=== PATIENT | male | born 1955 | race Hispanic/Latino ===

== ENCOUNTER 2017-03-04 03:33 | Emergency (ER) | payer MEDICAID ==
[2017-03-04 03:50] VITALS: BP 134/88; PULSE 96; RESP 17; TEMP 98.9; O2SAT 98
--- NOTE | 2017-03-04 04:55 | ED PDOC ---
Lower Extremity Pain/Injury Time Seen by Provider: 03/04/17 03:52 Chief Complaint (Nursing): Lower Extremity Problem/Injury Chief Complaint (Provider): Lower Extremity Problem History Per: Patient History/Exam Limitations: no limitations Onset/Duration Of Symptoms: Hrs (x1) Current Symptoms Are (Timing): Still Present Additional Complaint(s): 61 year old male presents to ED with complaints of atraumatic right foot pain x1 hour and has a past medical history of Hypertension, stroke (residual right sided weakness), and hypercholesterolemia. Patient states he is noncompliant with his medication because he ran out. Notes onset of foot pain while sitting in [employer] and confirms that he has not removed his shoes for 1 week. (-) numbness or weakness to the area. PCP: None Past Medical History Reviewed: Historical Data, Nursing Documentation, Vital Signs Vital Signs: Last Vital Signs Temp 98.9 F 03/04/17 03:40 Pulse 96 H 03/04/17 03:40 Resp 17 03/04/17 03:40 BP 134/88 03/04/17 03:40 Pulse Ox 98 03/04/17 03:40 - Medical History PMH: CVA, HTN, Hypercholesterolemia - Surgical History Surgical History: No Surg Hx - Family History Family History: States: No Known Family Hx - Living Arrangements Living Arrangements: Other (Non-domiciled) - Allergies Allergies/Adverse Reactions: Allergies Allergy/AdvReac Type Severity Reaction Status Date / Time No Known Allergies Allergy Verified 03/04/17 03:50 Wells Criteria for PE - Wells Criteria for Pulmonary Embolism P.E is #1 Diagnosis, or Equally Likely: No Heart Rate >100: No Hemoptysis: No Malignancy w/treatment within 6 months, or palliative: No Total Score: 0 Review of Systems ROS Statement: Except As Marked, All Systems Reviewed And Found Negative Musculoskeletal: Positive for: Foot Pain (right foot pain) Neurological: Negative for: Weakness, Numbness Physical Exam - Reviewed Nursing Documentation Reviewed: Yes Vital Signs Reviewed: Yes - Physical Exam Appears: Positive for: Non-toxic, No Acute Distress (Unkempt) Head Exam: Positive for: NORMAL INSPECTION Skin: Positive for: Normal Color, Warm, Dry Eye Exam: Positive for: Normal appearance Cardiovascular/Chest: Positive for: Regular Rate, Rhythm Respiratory: Positive for: Normal Breath Sounds. Negative for: Respiratory Distress Gastrointestinal/Abdominal: Positive for: Soft. Negative for: Tenderness Back: Positive for: Normal Inspection Extremity: Positive for: Normal ROM. Negative for: Tenderness, Deformity, Swelling, Other ((-) wounds, erythema, swelling, tenderness, or lesions to RLE) Neurologic/Psych: Positive for: Alert, Oriented. Negative for: Motor/Sensory Deficits - ECG O2 Sat by Pulse Oximetry: 98 (RA) Pulse Ox Interpretation: Normal Medical Decision Making Medical Decision Makin Initial impression: foot pain, normal exam of foot Initial plan: * Ibuprofen 600mg PO * Re-eval Patient notes that he feels better after removing shoes. Scribe Attestation: Documented by Tricia Alford acting as a scribe for Belén Shay MD. Scribe Attestation: All medical record entries made by the Scribe were at my direction and personally dictated by me. I have reviewed the chart and agree that the record accurately reflects my personal performance of the history, physical exam, medical decision making, and the department course for this patient. I have also personally directed, reviewed, and agree with the discharge instructions and disposition. Disposition - Clinical Impression Clinical Impression: Foot pain, right - Patient ED Disposition Is Patient to be Admitted: No Doctor Will See Patient In The: Office Counseled Patient/Family Regarding: Studies Performed, Diagnosis, Need For Followup - Disposition Referrals: Podiatry Clinic [Outside] Disposition: Routine/Home Disposition Time: 06:12 Condition: GOOD Instructions: Arthralgia (ED)
== END 2017-03-04 07:00 | disposition home or self-care (01) ==
LOC: H.ER 03:33
DX: M79.671 Pain in right foot (principal); E78.00 Pure hypercholesterolemia, unspecified; I10 Essential (primary) hypertension; Z86.73 Personal history of transient ischemic attack (TIA), and cerebral infarction without residual deficits

== ENCOUNTER 2017-05-19 00:19 | Emergency (ER) | payer OTHER, MEDICAID ==
[2017-05-19 00:38] VITALS: RESP 16; TEMP 98.1; O2SAT 96
[2017-05-19 02:03] LABS: HEMOGLOBIN 14.1 g/dL (12.0-18.0); MEAN CORPUSCULAR HEMOGLOBIN 30.1 pg (27.0-31.0); MEAN CORPUSCULAR HGB CONC 33.5 g/dL (33.0-37.0); RBC 4.67 Mil/uL (4.40-5.90); RED CELL DISTRIBUTION WIDTH 14.2 % (11.5-14.5); WHITE BLOOD COUNT 9.5 K/uL (4.8-10.8)
[2017-05-19 02:14] LABS: ALB/GLOB RATIO 1.3 (1.0-2.1); ALBUMIN 3.6 g/dL (3.5-5.0); ALT/SGPT 60 U/L (21-72); AST/SGOT 22 U/L (17-59); BLOOD UREA NITROGEN 17 mg/dl (9-20); CALCIUM 9.1 mg/dL (8.4-10.2); GFR AFRICAN-AMERICAN > 60; GFR NON-AFRICAN AMERICAN > 60
[2017-05-19 03:37] VITALS: BP 138/77; PULSE 81
--- NOTE | 2017-05-19 04:00 | ED PDOC ---
HPI: Headache Time Seen by Provider: 05/19/17 01:01 Chief Complaint (Nursing): Headache Chief Complaint (Provider): Facial pain x 2 hours History Per: Patient History/Exam Limitations: no limitations Onset/Duration Of Symptoms: Days Current Symptoms Are (Timing): Still Present Severity: Mild Preceeding Symptoms: None Associated Symptoms: denies: Photophobia, Blurred Vision, Nausea, Vomiting, Extremity Weakness Additional Complaint(s): Pt states he thinks his BP his high and did not take his BP medication today ( clonidine). Pt reports facial pain, denies headache. Past Medical History Reviewed: Historical Data, Nursing Documentation, Vital Signs Vital Signs: Last Vital Signs Temp 98.1 F 05/19/17 00:35 Pulse 81 05/19/17 03:37 Resp 16 05/19/17 00:35 BP 138/77 05/19/17 03:37 Pulse Ox 96 05/19/17 00:35 - Medical History PMH: Back Problems, Benign Prostatic Hyperplasia, COPD, CVA, Depression, HTN, Hypercholesterolemia - Surgical History Surgical History: No Surg Hx - Family History Family History: States: No Known Family Hx - Living Arrangements Living Arrangements: With Family - Social History Current smoker - smoking cessation education provided: No Alcohol: None Drugs: Denies - Allergies Allergies/Adverse Reactions: Allergies Allergy/AdvReac Type Severity Reaction Status Date / Time No Known Allergies Allergy Verified 05/19/17 00:35 Review of Systems ROS Statement: Except As Marked, All Systems Reviewed And Found Negative Constitutional: Negative for: Fever, Chills ENT: Positive for: Other Neurological: Negative for: Weakness Physical Exam - Reviewed Nursing Documentation Reviewed: Yes Vital Signs Reviewed: Yes - Physical Exam Appears: Positive for: Well, Non-toxic, No Acute Distress Head Exam: Positive for: ATRAUMATIC, NORMAL INSPECTION, NORMOCEPHALIC Skin: Positive for: Normal Color, Warm, DRY Eye Exam: Positive for: Normal appearance ENT: Positive for: Normal ENT Inspection Neck: Positive for: Normal, Painless ROM Cardiovascular/Chest: Positive for: Regular Rate, Rhythm Respiratory: Positive for: CNT, Normal Breath Sounds Back: Positive for: Normal Inspection Extremity: Positive for: Normal ROM Neurologic/Psych: Positive for: Alert, Oriented - Laboratory Results Result Diagrams: 05/19/17 01:59 05/19/17 01:59 - ECG O2 Sat by Pulse Oximetry: 96 Medical Decision Making Medical Decision Making: Labs normal. Improvement of HTN. Disposition - Clinical Impression Clinical Impression: Facial pain, HTN (hypertension) - Patient ED Disposition Is Patient to be Admitted: No - Disposition Disposition: Routine/Home Disposition Time: 04:00 Condition: GOOD Instructions: Chronic Hypertension (ED)
== END 2017-05-19 04:45 | disposition home or self-care (01) ==
LOC: H.ER 00:19
DX: R51 Headache (principal); I10 Essential (primary) hypertension; Z86.59 Personal history of other mental and behavioral disorders; J44.9 Chronic obstructive pulmonary disease, unspecified; N40.0 Benign prostatic hyperplasia without lower urinary tract symptoms; E78.00 Pure hypercholesterolemia, unspecified

== ENCOUNTER 2017-05-23 22:03 | Emergency (ER) | payer OTHER, MEDICAID ==
[2017-05-23 22:10] VITALS: PULSE 91; RESP 16; TEMP 97.2; O2SAT 96
--- NOTE | 2017-05-23 22:48 | ED PDOC ---
HPI: Hypertension/Hypotension Time Seen by Provider: 05/23/17 22:19 Chief Complaint (Nursing): High Blood Pressure Chief Complaint (Provider): High Blood Pressure and facial pain History Per: Patient History/Exam Limitations: no limitations Onset/Duration Of Symptoms: Hrs Current Symptoms Are (Timing): Still Present Associated Symptoms: denies: Chest Pain, Dyspnea, Dizziness, Blurred Vision, Focal Weakness, Headache Exacerbating Factor(s): Pos: None Additional History Per: Patient Additional Complaint(s): This is 61 y/o homeless male with PMH of HTN, HLD, COPD, CVAx2, depression and BPH comes to the ED c/o high blood pressure and facial pain which he started feeling few hours ago. Patient is also c/o right arm pain which comes whenever his blood pressure high. Denies any blurred vision, headache, dizziness, vomiting, weakness, numbness or tingling. Admits dyspnea on exertion. Denies any chest pain, abdominal pain or neck pain. Past Medical History Vital Signs: Last Vital Signs Temp 97.2 F L 05/23/17 22:08 Pulse 91 H 05/23/17 22:08 Resp 16 05/23/17 22:08 BP 173/92 H 05/23/17 22:08 Pulse Ox 96 05/23/17 22:08 - Medical History PMH: Back Problems, Benign Prostatic Hyperplasia, COPD, CVA, Depression, HTN, Hypercholesterolemia - Surgical History Surgical History: No Surg Hx - Family History Family History: States: Diabetes, Hypertension Other Family History: cancer - Living Arrangements Living Arrangements: Other (Homeless) - Social History Current smoker - smoking cessation education provided: Yes Alcohol: None Drugs: Denies - Allergies Allergies/Adverse Reactions: Allergies Allergy/AdvReac Type Severity Reaction Status Date / Time No Known Allergies Allergy Verified 05/19/17 00:35 Review of Systems Constitutional: Negative for: Fever, Weakness, Weight loss Eyes: Negative for: Pain, Vision Change, Conjunctivae Inflammation ENT: Negative for: Ear Pain, Nose Pain Cardiovascular: Negative for: Chest Pain, Palpitations, Orthopnea Respiratory: Positive for: SOB with Exertion. Negative for: Cough, Shortness of Breath Gastrointestinal: Negative for: Nausea, Vomiting, Abdominal Pain, Diarrhea Musculoskeletal: Positive for: Shoulder Pain (right ), Other (facial pressure ) . Negative for: Neck Pain Neurological: Negative for: Weakness, Numbness, Incoordination, Change in Speech , Confusion, Altered Mental Status, Headache, Dizziness Physical Exam - Reviewed Nursing Documentation Reviewed: Yes Vital Signs Reviewed: Yes - Physical Exam Appears: Positive for: No Acute Distress Head Exam: Positive for: NORMOCEPHALIC Skin: Positive for: Normal Color, Warm Eye Exam: Positive for: Normal appearance, EOMI, PERRL ENT: Positive for: Normal ENT Inspection Neck: Positive for: Normal Cardiovascular/Chest: Positive for: Regular Rate, Rhythm. Negative for: Edema Respiratory: Positive for: Normal Breath Sounds Gastrointestinal/Abdominal: Positive for: Normal Exam Extremity: Negative for: Tenderness, Pedal Edema - ECG O2 Sat by Pulse Oximetry: 96 - Progress ED Course And Treament: 61 y/o male with high blood pressure and facial pain - Monitor VS - EKG - CBC, CMP - Clonidine 0.1 mg - Re-evaluate Case discussed with Dr. Barraza Disposition - Clinical Impression Clinical Impression: History of hypertension - Disposition Referrals: [facility] [Outside] Disposition Time: 23:50 Condition: STABLE Instructions: Hypertension (ED) Forms: [employer] (H[place]er)
[2017-05-23 23:23] VITALS: BP 121/64
--- NOTE | 2017-05-24 11:58 | CARD ---
APPROVED REPORT EKG Measurement Heart [id number] <Conclusion> Sinus rhythm with occasional premature ventricular complexes Nonspecific T wave abnormality Abnormal ECG
== END 2017-05-24 01:20 | disposition home or self-care (01) ==
LOC: H.ER 22:03
DX: I10 Essential (primary) hypertension (principal); E78.00 Pure hypercholesterolemia, unspecified; F17.200 Nicotine dependence, unspecified, uncomplicated; F32.9 Major depressive disorder, single episode, unspecified; N40.0 Benign prostatic hyperplasia without lower urinary tract symptoms; Z86.73 Personal history of transient ischemic attack (TIA), and cerebral infarction without residual deficits

== ENCOUNTER 2017-05-27 21:46 | Inpatient (IN) | payer MEDICAID, OTHER ==
--- NOTE | 2017-05-27 22:50 | ED PDOC ---
HPI: Hypertension/Hypotension Time Seen by Provider: 05/27/17 22:38 Chief Complaint (Nursing): High Blood Pressure Chief Complaint (Provider): neck pain and high bp History Per: Patient History/Exam Limitations: no limitations Onset/Duration Of Symptoms: Days (today) Current Symptoms Are (Timing): Still Present Additional History Per: Patient Additional Complaint(s): Pt. with high bp. Not taking any meds he is suppose to. Neck pressure and R arm pain. No numbness, tingles, dizziness, abd pain, chest pain, dyspnea. Homeless. Past Medical History Reviewed: Nursing Documentation, Vital Signs Vital Signs: Last Vital Signs Temp 98.4 F 05/27/17 22:06 Pulse 78 05/27/17 22:06 Resp 16 05/27/17 22:06 BP 187/95 H 05/27/17 22:06 Pulse Ox 97 05/27/17 22:06 - Medical History PMH: Back Problems, Benign Prostatic Hyperplasia, COPD, CVA, Depression, HTN, Hypercholesterolemia - Family History Family History: States: Diabetes, Hypertension - Social History Current smoker - smoking cessation education provided: No Alcohol: None Drugs: Denies - Allergies Allergies/Adverse Reactions: Allergies Allergy/AdvReac Type Severity Reaction Status Date / Time No Known Allergies Allergy Verified 05/27/17 22:06 Review of Systems ROS Statement: Except As Marked, All Systems Reviewed And Found Negative Musculoskeletal: Positive for: Neck Pain, Arm Pain Physical Exam - Reviewed Nursing Documentation Reviewed: Yes Vital Signs Reviewed: Yes - Physical Exam Appears: Positive for: Well, Non-toxic, No Acute Distress Head Exam: Positive for: ATRAUMATIC, NORMAL INSPECTION, NORMOCEPHALIC Skin: Positive for: Normal Color, Warm, DRY Eye Exam: Positive for: EOMI, Normal appearance, PERRL ENT: Positive for: Normal ENT Inspection Neck: Positive for: Normal, Painless ROM Cardiovascular/Chest: Positive for: Regular Rate, Rhythm Respiratory: Positive for: CNT, Normal Breath Sounds Gastrointestinal/Abdominal: Positive for: Normal Exam, Bowel Sounds, Soft Back: Positive for: Normal Inspection Extremity: Positive for: Normal ROM Neurologic/Psych: Positive for: Alert, health outreach worker II-XII, Oriented. Negative for: Motor/Sensory Deficits - ECG ECG: Positive for: Interpreted By Me, Viewed By Me ECG Rhythm: Positive for: Normal QRS, Normal ST Segment, Sinus Rhythm O2 Sat by Pulse Oximetry: 97 Pulse Ox Interpretation: Normal - Progress ED Course And Treament: 2355: Stable. Dr. Strickland to take over care. Disposition - Clinical Impression Clinical Impression: HTN (hypertension) - Patient ED Disposition Is Patient to be Admitted: Transfer of Care - Disposition Disposition Time: 00:16 Condition: STABLE Patient Signed Over To: Wellington Strickland
--- NOTE | 2017-05-28 00:14 | CT ---
EXAM: CT Head Without Intravenous Contrast CLINICAL HISTORY: 61 years old, male; Pain and signs and symptoms; Other: High blood pressure; Headache; Headache not specified; Patient HX: CVA TECHNIQUE: Axial computed tomography images of the head/brain without intravenous contrast. All CT scans at this facility use one or more dose reduction techniques, viz.: automated exposure control; ma/kV adjustment per patient size (including targeted exams where dose is matched to indication; i.e. head); or iterative reconstruction technique. Coronal and sagittal reformatted images were created and reviewed. COMPARISON: No relevant prior studies available. FINDINGS: Brain: There is mild diffuse cerebral atrophy present, consistent with this patient's age. There is a focus of decreased density and volume loss in the right frontal lobe, consistent with encephalomalacia from a remote infarct or other insult. There is a focus of decreased density and volume loss in the left frontal lobe, consistent with encephalomalacia from a remote infarct or other insult. There is moderate diffuse heterogeneity of the white matter attenuation, consistent with chronic white matter ischemic changes. Chronic right thalamic lacunar infarct. Chronic left lacunar infarct in the garcia radiata. There are chronic infarcts in the edyta No hemorrhage. Ventricles: The ventricular system demonstrates moderate diffuse compensatory enlargement. Ex vacuo dilatation of the frontal horns bilaterally. Bones/joints: Unremarkable. No acute fracture. Soft tissues: Unremarkable. Sinuses: Clinically opacification of the right frontal sinus.There is diffuse mucoperiosteal thickening in the ethmoid and maxillary sinuses, consistent with chronic sinusitis. Mastoid air cells: Unremarkable as visualized. No mastoid effusion. IMPRESSION: Age-related atrophy and chronic white matter ischemic changes, with no evidence of an acute intracranial abnormality. Bifrontal lobe encephalomalacia consistent with chronic infarcts. Chronic infarcts in the edyta. Chronic right thalamic and left garcia radiata lacunar infarcts. Chronic sinus disease.
[2017-05-28 00:22] LABS: BASO # 0.1 K/uL (0.0-0.2); BASO % 0.7 % (0.0-2.0); EOS # 0.5 K/uL (0.0-0.7); EOS % 5.6 % (0.0-4.0); HEMOGLOBIN 14.2 g/dL (12.0-18.0); LYMPH # 1.9 K/uL (1.0-4.3); LYMPH % 19.8 % (20.0-40.0); MEAN CELL VOLUME 90.5 fl (80.0-94.0); MEAN CORPUSCULAR HEMOGLOBIN 29.7 pg (27.0-31.0); MEAN CORPUSCULAR HGB CONC 32.9 g/dL (33.0-37.0); MONO # 0.7 K/uL (0.0-0.8); MONO % 7.5 % (0.0-10.0); NEUT # 6.4 K/uL (1.8-7.0); NEUT % 66.4 % (50.0-75.0); NRBC % 0.1 % (0.0-0.0); RBC 4.76 Mil/uL (4.40-5.90); RED CELL DISTRIBUTION WIDTH 14.8 % (11.5-14.5); WHITE BLOOD COUNT 9.6 K/uL (4.8-10.8)
[2017-05-28 00:41] LABS: ALB/GLOB RATIO 1.3 (1.0-2.1); ALBUMIN 3.9 g/dL (3.5-5.0); ALT/SGPT 87 U/L (21-72); AST/SGOT 29 U/L (17-59); BLOOD UREA NITROGEN 13 mg/dl (9-20); CALCIUM 9.4 mg/dL (8.4-10.2); GFR AFRICAN-AMERICAN > 60; GFR NON-AFRICAN AMERICAN > 60
[2017-05-28 00:43] LABS: PARTIAL THROMBOPLASTIN TIME 28.8 Seconds (25.6-37.1); PROTHROMBIN TIME 11.5 Seconds (9.8-13.1)
--- NOTE | 2017-05-28 01:08 | ED PDOC ---
- Laboratory Results Result Diagrams: 05/27/17 23:10 05/27/17 23:10 - ECG O2 Sat by Pulse Oximetry: 97 Medical Decision Making Medical Decision Making: Time: 00:00 --Patient signed over to me by Dr. Dias pending labs. 2:00 BP 140s/80s at this time. Pt. states he's SOB and having arm pain. No wheezing noted. Patient's 3rd visit to ED for uncontrollable BP. Will admit for r/o ACS given age, smoking status, and uncontrolled BP, pt. will require OBS for 24 hour of cardiac monitoring. Pt. has no PMD (states PMD is in [place] ). Scribe Attestation: Documented by Rodri Eisenberg, acting as a scribe for Wellington Strickland MD. Provider Scribe Attestation: All medical record entries made by the Scribe were at my direction and personally dictated by me. I have reviewed the chart and agree that the record accurately reflects my personal performance of the history, physical exam, medical decision making, and the department course for this patient. I have also personally directed, reviewed, and agree with the discharge instructions and disposition. Disposition - Clinical Impression Clinical Impression: HTN (hypertension), Shortness of breath - POA Present On Arrival: None - Disposition Disposition: Hospitalized as Observation Patient Disposition Time: 02:00 Condition: STABLE
--- NOTE | 2017-05-28 08:23 | CARD ---
APPROVED REPORT EKG Measurement Heart [id number] <Conclusion> Normal sinus rhythm Normal ECG
--- NOTE | 2017-05-28 09:36 | RAD ---
HISTORY: neck pain COMPARISON: No prior. FINDINGS: LUNGS: No active pulmonary disease. PLEURA: No significant pleural effusion identified, no pneumothorax apparent. CARDIOVASCULAR: Atherosclerotic aortic calcifications. Cardiomediastinal silhouette appears prominent; however, this cannot be accurately assessed on an AP projection. OSSEOUS STRUCTURES: Degenerative changes. VISUALIZED UPPER ABDOMEN: Normal. OTHER FINDINGS: None. IMPRESSION: No active disease.
--- NOTE | 2017-05-28 12:38 | CP.PCM.HP ---
History of Present Illness - History of Present Illness History of Present Illness: 61 yr old M presented to ED with complaint of neck and right arm pain x 2 days. PMHx includes uncontrolled hypertension, morbid obesity, chronic back pain, COPD , CVA without residual weakness or deficit and depression. Neck and right arm pain is 3/10, dull, no exacerbated by anything, has no tried anything to alleviate his pain. Denies chest pain, SOB, weakness, dizziness, sweating, nausea, vomiting, or syncope. Patient reports he is homeless and sleeps on the street as he cannot stand to be in the halfway, does not have a PMD, does not take BP medication or follow up with any physician. He has not taken any medication to alleviate the neck and arm pain. Denies cardiac catheterization in the past. PMD: none PMHx: uncontrolled hypertension, morbid obesity, chronic back pain, COPD, CVA and depression SurgHx: left knee arthroscopy FMHx: mother at 60yrs old from unknown primary pelvic cancer, father is 88yrs old and healthy, siblings are healthy SocHx: current smoker-47 pack yrs, denies Etoh or drugs, does not have contact with his family Medications: none Allergies: NKDA Present on Admission - Present on Admission Any Indicators Present on Admission: No History of DVT/PE: No History of Uncontrolled Diabetes: No Urinary Catheter: No Decubitus Ulcer Present: No History Surgical Site Infection Following: None Review of Systems - Review of Systems All systems: reviewed and no additional remarkable complaints except (for what is mentioned in the HPI) - Constitutional Constitutional: absent: Headache, Weakness - EENT Eyes: absent: Blurred Vision, Change in Vision Ears: absent: Dizziness Nose/Mouth/Throat: absent: Nasal Congestion, Nasal Discharge - Cardiovascular Cardiovascular: absent: Chest Pain, Dyspnea - Respiratory Respiratory: absent: Hemoptysis - Gastrointestinal Gastrointestinal: absent: Nausea, Vomiting - Genitourinary Genitourinary: absent: Dysuria, Hematuria - Musculoskeletal Musculoskeletal: Back Pain (chronic), Neck Pain (and right arm pain) - Integumentary Integumentary: absent: Swelling - Neurological Neurological: absent: Dizziness - Psychiatric Psychiatric: absent: Suicidal Ideation - Endocrine Endocrine: absent: Polyuria - Hematologic/Lymphatic Hematologic: absent: Easy Bleeding, Easy Bruising Past Patient History - Past Social History Smoking Status: Unknown If Ever Smoked - CARDIAC Hx Hypercholesterolemia: Yes Hx Hypertension: Yes - PULMONARY Hx Chronic Obstructive Pulmonary Disease (COPD): Yes - NEUROLOGICAL HX Cerebrovascular Accident: Yes - PSYCHIATRIC Hx Depression: Yes Hx Substance Use: No - SURGICAL HISTORY Other/Comment: L KNEE - ANESTHESIA Hx Anesthesia: Yes Meds Allergies/Adverse Reactions: Allergies Allergy/AdvReac Type Severity Reaction Status Date / Time No Known Allergies Allergy Verified 05/27/17 22:06 Physical Exam - Constitutional Appears: Unkempt (severely poor hygiene) - Head Exam Head Exam: ATRAUMATIC, NORMOCEPHALIC Additional comments: seborrheic dermatitis of scalp - Eye Exam Eye Exam: EOMI, PERRL - ENT Exam ENT Exam: Mucous Membranes Moist - Neck Exam Neck exam: Positive for: Full Rom. Negative for: Lymphadenopathy - Respiratory Exam Respiratory Exam: Clear to Auscultation Bilateral, NORMAL BREATHING PATTERN - Cardiovascular Exam Cardiovascular Exam: REGULAR RHYTHM, +S1, +S2 - GI/Abdominal Exam GI & Abdominal Exam: Normal Bowel Sounds, Soft (obese) - Extremities Exam Extremities exam: Positive for: full ROM, pedal edema (and chronic venous stasis dermatits of bilateral distal LE) - Neurological Exam Neurological exam: Alert, CN II-XII Intact, Oriented x3 - Psychiatric Exam Psychiatric exam: Normal Affect, Normal Mood - Skin Skin Exam: Dry, Normal Color, Warm Results - Vital Signs Recent Vital Signs: Last Vital Signs Temp 98.4 F 05/27/17 22:06 Pulse 82 05/28/17 06:50 Resp 17 05/28/17 06:50 BP 139/78 05/28/17 06:50 Pulse Ox 97 05/28/17 06:50 - Labs Result Diagrams: 05/27/17 23:10 05/27/17 23:10 Labs: Laboratory Results - last 24 hr 05/27/17 05/27/17 05/27/17 23:10 23:10 23:10 WBC 9.6 RBC 4.76 Hgb 14.2 Hct 43.1 MCV 90.5 MCH 29.7 MCHC 32.9 L RDW 14.8 H Plt Count 177 MPV 10.0 Neut % (Auto) 66.4 Lymph % (Auto) 19.8 L [place] % (Auto) 7.5 Eos % (Auto) 5.6 H Baso % (Auto) 0.7 Neut # 6.4 Lymph # 1.9 [place] # 0.7 Eos # 0.5 Baso # 0.1 PT 11.5 INR 1.0 APTT 28.8 Sodium 145 Potassium 3.5 L Chloride 108 H Carbon Dioxide 26 Anion Gap 15 BUN 13 Creatinine 0.7 L Est GFR ( Amer) > 60 Est GFR (Non-Af Amer) > 60 Random Glucose 126 H Calcium 9.4 Total Bilirubin 0.5 AST 29 ALT 87 H D Alkaline Phosphatase 60 Troponin I < 0.0120 Total Protein 7.0 Albumin 3.9 Globulin 3.1 Albumin/Globulin Ratio 1.3 05/28/17 07:44 WBC RBC Hgb Hct MCV MCH MCHC RDW Plt Count MPV Neut % (Auto) Lymph % (Auto) [place] % (Auto) Eos % (Auto) Baso % (Auto) Neut # Lymph # [place] # Eos # Baso # PT INR APTT Sodium Potassium Chloride Carbon Dioxide Anion Gap BUN Creatinine Est GFR ( Amer) Est GFR (Non-Af Amer) Random Glucose Calcium Total Bilirubin AST ALT Alkaline Phosphatase Troponin I < 0.0120 Total Protein Albumin Globulin Albumin/Globulin Ratio Assessment & Plan - Assessment and Plan (Free Text) Assessment: 61 yr old M admitted for uncontrolled hypertension with neck and arm pain, rule out ACS. 1. Uncontrolled hypertension -chronic, uncontrolled -patient not adherent to medication or follow up with any physician -admit to telemetry, cardiac monitoring -monitor BP -will refer to PMD as outpatient 2. Neck and right arm pain -acute, improved s/p tylenol, likely secondary to muscle spasm vs less likely ACS -EKG: NSR, troponin negative x 2, CT head: evidence of chronic infarcts with no acute intracranial abnormalities -CXR: no active disease -f/u 3rd serial troponin 3. DVT prophylaxis -Lovenox 40mg SC QD - Date & Time Date: 05/28/17 Time: 10:00
[2017-05-28] MEDS ORDERED: Potassium Chloride 20 mEq ER Tab PO ONE ×2 (13:22→14:26)
--- NOTE | 2017-05-28 16:48 | CP.PCM.DIS ---
Provider - Provider Date of Admission: 05/28/17 02:41 Attending physician: Alex Swain MD Time Spent in preparation of Discharge (in minutes): 30 Diagnosis - Discharge Diagnosis (1) Uncontrolled hypertension Status: Chronic Priority: Low (2) Neck pain, acute Status: Acute Priority: Low (3) Arm pain Status: Acute Priority: Low Hospital Course - Lab Results Lab Results: Most Recent Lab Values WBC 9.6 K/uL (4.8-10.8) 05/27/17 23:10 RBC 4.76 Mil/uL (4.40-5.90) 05/27/17 23:10 Hgb 14.2 g/dL (12.0-18.0) 05/27/17 23:10 Hct 43.1 % (35.0-51.0) 05/27/17 23:10 MCV 90.5 fl (80.0-94.0) 05/27/17 23:10 MCH 29.7 pg (27.0-31.0) 05/27/17 23:10 MCHC 32.9 g/dL (33.0-37.0) L 05/27/17 23:10 RDW 14.8 % (11.5-14.5) H 05/27/17 23:10 Plt Count 177 K/uL (130-400) 05/27/17 23:10 MPV 10.0 fl (7.2-11.7) 05/27/17 23:10 Neut % (Auto) 66.4 % (50.0-75.0) 05/27/17 23:10 Lymph % (Auto) 19.8 % (20.0-40.0) L 05/27/17 23:10 Quay % (Auto) 7.5 % (0.0-10.0) 05/27/17 23:10 Eos % (Auto) 5.6 % (0.0-4.0) H 05/27/17 23:10 Baso % (Auto) 0.7 % (0.0-2.0) 05/27/17 23:10 Neut # 6.4 K/uL (1.8-7.0) 05/27/17 23:10 Lymph # 1.9 K/uL (1.0-4.3) 05/27/17 23:10 Quay # 0.7 K/uL (0.0-0.8) 05/27/17 23:10 Eos # 0.5 K/uL (0.0-0.7) 05/27/17 23:10 Baso # 0.1 K/uL (0.0-0.2) 05/27/17 23:10 PT 11.5 Seconds (9.8-13.1) 05/27/17 23:10 INR 1.0 (0.9-1.2) 05/27/17 23:10 APTT 28.8 Seconds (25.6-37.1) 05/27/17 23:10 Sodium 145 mmol/l (132-148) 05/27/17 23:10 Potassium 3.5 MMOL/L (3.6-5.0) L 05/27/17 23:10 Chloride 108 mmol/L (98-107) H 05/27/17 23:10 Carbon Dioxide 26 mmol/L (22-30) 05/27/17 23:10 Anion Gap 15 (10-20) 05/27/17 23:10 BUN 13 mg/dl (9-20) 05/27/17 23:10 Creatinine 0.7 mg/dl (0.8-1.5) L 05/27/17 23:10 Est GFR ( Amer) > 60 05/27/17 23:10 Est GFR (Non-Af Amer) > 60 05/27/17 23:10 Random Glucose 126 mg/dL (75-110) H 05/27/17 23:10 Calcium 9.4 mg/dL (8.4-10.2) 05/27/17 23:10 Total Bilirubin 0.5 mg/dl (0.2-1.3) 05/27/17 23:10 AST 29 U/L (17-59) 05/27/17 23:10 ALT 87 U/L (21-72) H D 05/27/17 23:10 Alkaline Phosphatase 60 U/L (38-126) 05/27/17 23:10 Troponin I < 0.0120 ng/mL (0.00-0.120) 05/28/17 15:01 Total Protein 7.0 G/DL (6.3-8.2) 05/27/17 23:10 Albumin 3.9 g/dL (3.5-5.0) 05/27/17 23:10 Globulin 3.1 gm/dL (2.2-3.9) 05/27/17 23:10 Albumin/Globulin Ratio 1.3 (1.0-2.1) 05/27/17 23:10 - Hospital Course Hospital Course: 61 yr old M admitted for uncontrolled hypertension with neck and arm pain. ACS ruled out s/p normal EKG, troponin negative x 3, CT head negative, CXR no active disease. Patient is medically stable for discharge with instructions to take BP meds as prescribed and follow up with Dr. Swain in 1 week, eat low salt heart healthy diet. - Date & Time of H&P Date of H&P: 05/28/17 Time of H&P: 12:37 Discharge Exam - Head Exam Head Exam: ATRAUMATIC, NORMOCEPHALIC - Eye Exam Eye Exam: EOMI - ENT Exam ENT Exam: Mucous Membranes Moist - Neck Exam Neck exam: Full Rom - Respiratory Exam Respiratory Exam: NORMAL BREATHING PATTERN - Cardiovascular Exam Cardiovascular Exam: REGULAR RHYTHM, +S1, +S2 - GI/Abdominal Exam GI & Abdominal Exam: Normal Bowel Sounds, Soft (obese) - Extremities Exam Extremities exam: full ROM - Neurological Exam Neurological exam: Alert, CN II-XII Intact, Oriented x3 - Psychiatric Exam Psychiatric exam: Normal Affect, Normal Mood - Skin Skin Exam: Dry, Warm Discharge Plan - Discharge Medications Prescriptions: Albuterol HFA [Ventolin HFA 90 mcg/actuation (8 g)] 90 mcg INH Q4 PRN #1 inhaler PRN Reason: Shortness Of Breath amLODIPine [Norvasc] 10 mg PO DAILY #30 tab Atorvastatin [Lipitor] 40 mg PO DAILY #30 tab Lisinopril/Hydrochlorothiazide [Lisinopril-Hctz 20-25 mg Tab] 1 tab PO DAILY # 30 tablet - Follow Up Plan Condition: STABLE Disposition: HOME/ ROUTINE Instructions: Heart Healthy Diet (DC), Low Sodium Diet (DC), Chronic Hypertension (DC) Additional Instructions: -Follow up with Dr. Swain within 1 week -Take medications as prescribed -consume low salt, heart healthy diet-printed information given Referrals: Alex Swain MD [Staff Provider] - Clinical Quality Measures - Date & Time of Discharge Summary Date of Discharge Summary: 05/28/17 Time of Discharge Summary: 16:49
[2017-05-28 18:13] VITALS: BP 134/78; PULSE 74; RESP 20; TEMP 98; O2SAT 98
[2017-05-29] MEDS ORDERED: Enoxaparin 40 mg Syringe SC SCH (09:00)
== END 2017-05-28 18:12 | disposition home or self-care (01) | DRG 134 ==
LOC: H.ER 21:46 → H.ERHOLD 05-28 02:41
PROVIDERS: ADMIT Family Medicine; ATTEND Family Medicine
DX: I10 Essential (primary) hypertension (principal); E66.01 Morbid (severe) obesity due to excess calories; J44.9 Chronic obstructive pulmonary disease, unspecified; E11.9 Type 2 diabetes mellitus without complications; E78.00 Pure hypercholesterolemia, unspecified; G89.29 Other chronic pain; M79.601 Pain in right arm; M54.2 Cervicalgia; N40.0 Benign prostatic hyperplasia without lower urinary tract symptoms; F32.9 Major depressive disorder, single episode, unspecified; F17.210 Nicotine dependence, cigarettes, uncomplicated; Z86.73 Personal history of transient ischemic attack (TIA), and cerebral infarction without residual deficits; Z59.0 Homelessness

== ENCOUNTER 2017-06-03 00:43 | Emergency (ER) | payer MEDICAID ==
[2017-06-03 01:09] VITALS: BP 178/93; PULSE 77; RESP 16; TEMP 97.6; O2SAT 95
--- NOTE | 2017-06-03 02:12 | ED PDOC ---
HPI: General Adult Time Seen by Provider: 06/03/17 01:46 Chief Complaint (Nursing): ENT Problem Chief Complaint (Provider): High Blood Pressure History Per: Patient History/Exam Limitations: no limitations Onset/Duration Of Symptoms: Days Current Symptoms Are (Timing): Still Present Additional Complaint(s): Deon is a 61 year old, male who is currently homeless presents to the emergency department for medical evaluation. Patient was asked to leave waiting room, but patient states he has a history of high blood pressure and wanted blood pressure checked. Denies any chest pain, diarrhea, cough, vomiting or diarrhea. Does not take any of his medications. PMD: Provider TBD Past Medical History Reviewed: Historical Data, Nursing Documentation, Vital Signs Vital Signs: Last Vital Signs Temp 97.6 F 06/03/17 01:06 Pulse 77 06/03/17 01:06 Resp 16 06/03/17 01:06 BP 178/93 H 06/03/17 01:06 Pulse Ox 95 06/03/17 02:20 - Medical History PMH: Back Problems, Benign Prostatic Hyperplasia, COPD, CVA, Depression, HTN, Hypercholesterolemia - Surgical History Surgical History: No Surg Hx - Family History Family History: States: Diabetes, Hypertension - Home Medications Home Medications: Ambulatory Orders Medication Instructions Recorded Albuterol HFA [Ventolin HFA 90 90 mcg INH Q4 PRN #1 inhaler 05/28/17 mcg/actuation (8 g)] Atorvastatin [Lipitor] 40 mg PO DAILY #30 tab 05/28/17 Lisinopril/Hydrochlorothiazide 1 tab PO DAILY #30 tablet 05/28/17 [Lisinopril-Hctz 20-25 mg Tab] amLODIPine [Norvasc] 10 mg PO DAILY #30 tab 05/28/17 - Allergies Allergies/Adverse Reactions: Allergies Allergy/AdvReac Type Severity Reaction Status Date / Time No Known Allergies Allergy Verified 06/03/17 01:06 Review of Systems ROS Statement: Except As Marked, All Systems Reviewed And Found Negative Physical Exam - Reviewed Nursing Documentation Reviewed: Yes Vital Signs Reviewed: Yes - Physical Exam Appears: Positive for: Non-toxic Head Exam: Positive for: ATRAUMATIC, NORMAL INSPECTION, NORMOCEPHALIC Skin: Positive for: Normal Color Eye Exam: Positive for: Normal appearance ENT: Positive for: Normal ENT Inspection Neck: Positive for: Normal Cardiovascular/Chest: Positive for: Regular Rate, Rhythm Respiratory: Positive for: Normal Breath Sounds. Negative for: Respiratory Distress Gastrointestinal/Abdominal: Positive for: Normal Exam Extremity: Positive for: Normal ROM Neurologic/Psych: Positive for: Alert - ECG O2 Sat by Pulse Oximetry: 95 (RA) Medical Decision Making Medical Decision Making: Upon provider evaluation patient is medically stable, and requires no further treatment in the ED at this time. Patient will be discharged. Counseling was provided and all questions were answered regarding diagnosis and need for follow up with clinic. There is agreement to discharge plan. Return if symptoms persist or worsen. Scribe Attestation: Documented by Abrahan Esposito, acting as a scribe for Moreno Hurst MD Provider Scribe Attestation: All medical record entries made by the Scribe were at my direction and personally dictated by me. I have reviewed the chart and agree that the record accurately reflects my personal performance of the history, physical exam, medical decision making, and the department course for this patient. I have also personally directed, reviewed, and agree with the discharge instructions and disposition. Disposition - Clinical Impression Clinical Impression: Hypertension - Patient ED Disposition Is Patient to be Admitted: No - Disposition Referrals: [facility] [Outside] Disposition Time: 02:00 Condition: STABLE Instructions: Hypertension (ED) Forms: [employer] (Nepali)
== END 2017-06-03 02:12 | disposition home or self-care (01) ==
LOC: H.ER 00:43
DX: I10 Essential (primary) hypertension (principal); E78.00 Pure hypercholesterolemia, unspecified; F32.9 Major depressive disorder, single episode, unspecified; J44.9 Chronic obstructive pulmonary disease, unspecified; N40.0 Benign prostatic hyperplasia without lower urinary tract symptoms; Z86.73 Personal history of transient ischemic attack (TIA), and cerebral infarction without residual deficits